=== PATIENT | male | born 1985 | race Caucasian/White ===

== ENCOUNTER 2025-01-29 23:32 | Emergency (ER) | payer OTHER ==
[~2025-01-29] VITALS: Ht 175.3 cm; Wt 88.0 kg
[2025-01-29 23:40] VITALS: O2SAT 98
[2025-01-29 23:45] VITALS: BP 143/92; PULSE 97; RESP 16; TEMP 36.6; O2SAT 98
[2025-01-30] MEDS ORDERED: BO1 TP (00:18)
[2025-01-30] MEDS: TETANUS, DIPHTHERIA, PERTUSSIS VAC/PF 0.5ML (>10YR OLD) IM ONE (00:45)
== END 2025-01-30 01:43 | disposition home or self-care (01) ==
LOC: ER 23:32
DX: S61.411A Laceration without foreign body of right hand, initial encounter (principal); I10 Essential (primary) hypertension; W26.8XXA Contact with other sharp object(s), not elsewhere classified, initial encounter; Y93.89 Activity, other specified; Y92.89 Other specified places as the place of occurrence of the external cause; Y99.8 Other external cause status
CPT/HCPCS: 12001; 90471; 90715; 99283